=== PATIENT | female | born 1955 | race Caucasian/White ===

== ENCOUNTER 2021-07-31 07:45 | Inpatient (IN) | payer MEDICARE, OTHER ==
[~2021-07-31] VITALS: Ht 160 cm; Wt 73.3 kg
[~2021-07-31 07:45] MED LIST: ASPIR 8181 MG PO; BREO ELLIPTA 11 EACH INH; CALCIUM600 MG PO; CARAFATE1 GM PO; CLARITIN10 MG PO; COLESTID1 GM PO; DUONEB 2.5-0.5M1 AMP NEB; ESTROVEN PO; INHALER PO; LISINOPRIL 10MG10 MG PO; MULTI VITAMIN PO; NORCO 5-325 TA1 EACH PO; PRAVACHOL20 MG PO; PREDNISONE 20MG20 MG PO; ZOFRAN4 MG PO; ZOLOFT50 MG PO
[2021-07-31 08:37] LABS: BASOPHIL 0.2 % (0-2); EOSINOPHIL 0.1 % (0-7); HCT 47.5 % (37.0-47.0); HGB 15.5 g/dl (12.5-16.0); LYMPHOCYTE 14.4 % (15-48); MCH 29.1 pg (25.0-31.0); MCHC 32.6 g/dL (32.0-36.0); MCV 89.3 fL (78.0-100.0); MONOCYTE 8.3 % (0-12); MPV 8.9 fL (6.0-9.5); NEUTROPHIL 76.6 % (41-80); NRBC 0; PLT 330 K/uL (150-400); RBC 5.32 M/uL (4.20-5.40); WBC 12.4 K/uL (4.0-10.5)
[2021-07-31 08:59] LABS: LACTIC ACID 1.2 mmol/L (0.4-1.9)
[2021-07-31 09:22] LABS: ALBUMIN 3.7 g/dL (3.4-5.0); BILIRUBIN - TOTAL 0.3 mg/dL (0.2-1.0); BUN/CREAT RATIO (CALC) 37.3 RATIO; CREATININE 0.51 mg/dL (0.51-0.95); POTASSIUM 3.7 mmol/L (3.5-5.1); TOTAL PROTEIN 7.7 g/dL (6.4-8.2)
[2021-07-31 09:37] LABS: BILIRUBIN NEGATIVE (NEGATIVE); BLOOD 3+ Ery/uL (NEGATIVE); CLARITY CLEAR (CLEAR); COLOR YELLOW (YELLOW); GLUCOSE (U) NORMAL (NORMAL); LEUKOCYTES NEGATIVE Leu/uL (NEGATIVE); NITRITE NEGATIVE (NEGATIVE); PROTEIN 1+ mg/dL (NEGATIVE); SPECIFIC GRAVITY >=1.030 (1.001-1.030); UROBILINOGEN 0.2 mg/dL (0.2-1.0)
[2021-07-31 09:48] LABS: BACTERIA TRACE; MUCOUS LARGE; SQUAMOUS EPITHELIAL CELLS >50
[2021-07-31 10:04] LABS: CORONAVIRUS 2019 SARS-COV-2 NEGATIVE (NEGATIVE); INFLUENZA A NAA NEGATIVE (NEGATIVE)
[2021-07-31] MEDS ORDERED: ZYRTEC10 MG PO (12:53)
[2021-08-02 06:55] LABS: BASOPHIL 0.3 % (0-2); EOSINOPHIL 0 % (0-7); HGB 14.1 g/dl (12.5-16.0); LYMPHOCYTE 15.1 % (15-48); MCH 28.5 pg (25.0-31.0); MCHC 31.3 g/dL (32.0-36.0); MCV 90.9 fL (78.0-100.0); MONOCYTE 6.2 % (0-12); NEUTROPHIL 77.9 % (41-80); NRBC 0; PLT 259 K/uL (150-400); RBC 4.95 M/uL (4.20-5.40); RDW 14.9 % (11.5-14.0); WBC 7.4 K/uL (4.0-10.5)
[2021-08-02 07:18] LABS: BUN/CREAT RATIO (CALC) 37.8 RATIO; CREATININE 0.45 mg/dL (0.51-0.95); POTASSIUM 4.4 mmol/L (3.5-5.1)
[2021-08-03] MEDS ORDERED: DOXYCYCLINE MO100 MG PO (09:45)
[2021-08-03] MEDS ORDERED: DUONEB 2.5-0.5M1 AMP INH (09:45)
[2021-08-03] MEDS ORDERED: MEDROL 4MG DOSEP4 MG PO (09:45)
== END 2021-08-03 11:31 | disposition home or self-care (01) | DRG 871 ==
LOC: FER 07:45 → FMS 10:40
PROVIDERS: Emergency Medicine; ADMIT Internal Medicine
DX: A41.9 Sepsis, unspecified organism (principal); J96.01 Acute respiratory failure with hypoxia; J44.1 Chronic obstructive pulmonary disease with (acute) exacerbation; J44.0 Chronic obstructive pulmonary disease with (acute) lower respiratory infection; R65.20 Severe sepsis without septic shock; J20.9 Acute bronchitis, unspecified; I10 Essential (primary) hypertension; E78.5 Hyperlipidemia, unspecified; N20.0 Calculus of kidney; K44.9 Diaphragmatic hernia without obstruction or gangrene; Z20.822 Contact with and (suspected) exposure to COVID-19; F17.210 Nicotine dependence, cigarettes, uncomplicated; Z28.311 Partially vaccinated for COVID-19; Z99.81 Dependence on supplemental oxygen; Z90.710 Acquired absence of both cervix and uterus; Z98.890 Other specified postprocedural states; Z88.1 Allergy status to other antibiotic agents; Z90.49 Acquired absence of other specified parts of digestive tract; Z79.82 Long term (current) use of aspirin; Z79.899 Other long term (current) drug therapy
CPT/HCPCS: 36415; 36600; 71250; 80048; 80053; 81001; 82728; 82803; 83605; 83880; 84145; 84484; 85025; 87040; 94640; 94664; 94760; 94762; J1650; J2920; J2930; J7030; U0002